=== PATIENT | male | born 1950 | race Caucasian/White ===

== ENCOUNTER 2016-10-23 08:05 | Emergency (ER) | payer MEDICAID ==
[~2016-10-23] VITALS: Ht 177.8 cm; Wt 70.1 kg
[~2016-10-23 08:05] MED LIST: TAMS-11 PO
[2016-10-23 08:19] VITALS: BP 159/104
== END 2016-10-23 08:42 | disposition home or self-care (01) ==
LOC: ED 08:36
DX: N40.1 Benign prostatic hyperplasia with lower urinary tract symptoms (principal); R33.8 Other retention of urine; I10 Essential (primary) hypertension
CPT/HCPCS: 99281